=== PATIENT | male | born 1970 | race Caucasian/White ===

== ENCOUNTER 2017-03-10 11:58 | Emergency (ER) | payer OTHER ==
--- NOTE | ~2017-03-10 | US115 ---
[facility] RADIOLOGY TEXT RESULTS PATIENT: OLU JALLOH LOCATION: [place] : 70 UNIT #: [id number] AGE: [address]: Alicia Domingo SEX: M ORDER DR: [id number] [facility] [address] [facility] [place], [place] [address] [id number] MR#: [id number] Acc #: [id number] NAME: OLU JALLOH : 1970 SEX: M STUDY DATE/TIME: 03/10/2017 15:07 UNIT: [place] ROOM: STUDY DESCRIPTION: US Scrotum and Contents Attending Physician: Alicia Domingo Pa-C Ordering Physician: Diogo Friedman A.P.R.N. Primary Care Physician: No Primary Care Physician MEDICAL IMAGING REPORT This report is preliminary unless electronic signature is present EXAM Scrotal ultrasound with Doppler. HISTORY Bilateral testicular swelling for 2 days. FINDING Ultrasound examination of the scrotum and testes was performed with suggs-scale and Doppler. There is relatively increased blood flow to the left testis as compared to the right. No evidence of testicular torsion. No extratesticular mass or fluid collection. No epididymal abnormality. IMPRESSION 1. Slight relative prominence of the left testicular blood flow as compared to the right. In the appropriate clinical context this could be secondary to left orchitis. 2. No evidence of testicular torsion. 3. No extratesticular mass or fluid collection. Dictated by... Tanvir Joshua M.D. THIS IS AN ELECTRONICALLY VERIFIED REPORT Tanvir Joshua M.D. at 03/10/2017 10:50 PM RITESH/enid TD: 03/10/2017 17:31 JOB #: [id number] [facility] RADIOLOGY TEXT RESULTS PATIENT: OLU JALLOH LOCATION: [place] : 70 UNIT #: [id number] AGE: [address]: Alicia Domingo SEX: M ORDER DR: MEDICAL IMAGING REPORT Page 1 of 1 COPY
[2017-03-10 12:50] LABS: BASOPHIL# 0.1 X10e3 (0-0.3); BASOPHIL% 0.5 % (0-2.5); EOSINOPHIL# 0.3 X10e3 (0-0.7); EOSINOPHIL% 3.1 % (0.0-7.0); HEMATOCRIT 39.2 % (38.0-50.0); HEMOGLOBIN 12.8 gm/dL (13.0-16.0); MEAN CORPUSCULAR HEMOGLOBIN 29.2 PG (28-34); MEAN CORPUSCULAR HGB CONC 32.8 g/dL (30-36); MEAN PLATELET VOLUME 7.9 FL (6.5-11.5); MONOCYTE# 1.2 X10e3 (0-1.0); MONOCYTE% 10.7 % (3.0-12.0); NEUTROPHIL# 7.5 X10e3 (1.5-7.1); NEUTROPHIL% 67.7 % (40-75); PLATELET COUNT 190 X10e3 (140-420); RED CELL DISTRIBUTION WIDTH 14.1 % (11.0-15.5); WHITE BLOOD COUNT 11.1 X10e3 (4.0-10.5)
[2017-03-10 12:55] LABS: DIFF IND NO
[2017-03-10 13:25] LABS: ALBUMIN SERUM 3.4 g/dL (3.5-5.0); BILIRUBIN,TOTAL 0.4 mg/dL (0.2-2.0); CALCIUM SERUM 8.5 mg/dL (8.4-10.2); CREATININE SERUM 0.8 mg/dL (0.6-1.4); GLOM FILT RATE Estimated 107.2 mL/min (>60); POTASSIUM 3.2 mmol/L (3.5-5.1)
== END 2017-03-10 16:35 | disposition home or self-care (01) ==
LOC: CED 11:58 → CFTX 11:58
PROVIDERS: Nurse Practitioner
DX: N49.2 Inflammatory disorders of scrotum (principal); N45.2 Orchitis; F17.200 Nicotine dependence, unspecified, uncomplicated
CPT/HCPCS: 36415; 76870; 80053; 85025; 87040; 87070; 87205; 93976; 96361; 96365; 96375; 99284; J2270; J2405